=== PATIENT | male | born 1930 | race Caucasian/White ===

== ENCOUNTER 2020-04-16 07:17 | Emergency (ER) | payer MEDICARE, OTHER ==
[2020-04-16 08:12] LABS: BASOPHIL 0.2 % (0-2); EOSINOPHIL 0.5 % (0-7); HCT 39.1 % (42.0-52.0); HGB 12.7 g/dl (13.2-18.0); LYMPHOCYTE 42.6 % (15-48); MCHC 32.5 g/dL (32.0-36.0); MCV 98.5 fL (78.0-100.0); MONOCYTE 2.4 % (0-12); MPV 10.1 fL (6.0-9.5); NRBC 0; PLT 152 K/uL (150-400); RBC 3.97 M/uL (4.70-6.00); RDW 12.9 % (11.5-14.0); WBC 11.7 K/uL (4.0-10.5)
[2020-04-16 08:28] LABS: BILIRUBIN NEGATIVE (NEGATIVE); BLOOD NEGATIVE Ery/uL (NEGATIVE); CLARITY CLEAR (CLEAR); COLOR YELLOW (YELLOW); GLUCOSE (U) NORMAL (NORMAL); LEUKOCYTES NEGATIVE Leu/uL (NEGATIVE); NITRITE NEGATIVE (NEGATIVE); PROTEIN 1+ mg/dL (NEGATIVE); UROBILINOGEN 0.2 mg/dL (0.2-1.0)
[2020-04-16 08:35] LABS: ALBUMIN 3.4 g/dL (3.4-5.0); BILIRUBIN - TOTAL 0.6 mg/dL (0.2-1.0); BUN/CREAT RATIO (CALC) 19.4 RATIO; CREATININE 1.6 mg/dL (0.67-1.17); GLOBULIN (CALCULATION) 3.1 g/dL; MAGNESIUM 1.9 mg/dL (1.8-2.4); POTASSIUM 3.8 mmol/L (3.5-5.1); TOTAL PROTEIN 6.5 g/dL (6.4-8.2)
[2020-04-16 08:39] LABS: BACTERIA TRACE; SQUAMOUS EPITHELIAL CELLS RARE
[2020-04-16 08:40] LABS: LACTIC ACID 1.1 mmol/L (0.4-1.9)
== END 2020-04-16 14:57 | disposition home or self-care (01) ==
LOC: FER 07:17
PROVIDERS: Emergency Medicine
DX: R26.9 Unspecified abnormalities of gait and mobility (principal); I12.9 Hypertensive chronic kidney disease with stage 1 through stage 4 chronic kidney disease, or unspecified chronic kidney disease; N18.30 Chronic kidney disease, stage 3 unspecified; R42 Dizziness and giddiness; I48.91 Unspecified atrial fibrillation; C91.10 Chronic lymphocytic leukemia of B-cell type not having achieved remission; Z79.01 Long term (current) use of anticoagulants; Z20.822 Contact with and (suspected) exposure to COVID-19
CPT/HCPCS: 36415; 70450; 70551; 71045; 80053; 81001; 83605; 83735; 84145; 84443; 84484; 85025; 87040; 93005; J3360; U0002

== ENCOUNTER 2021-04-17 02:43 | Emergency (ER) | payer MEDICARE, OTHER ==
[2021-04-17 03:49] LABS: BASOPHIL 0.2 % (0-2); EOSINOPHIL 1.5 % (0-7); HCT 39.3 % (42.0-52.0); HGB 13.3 g/dl (13.2-18.0); LYMPHOCYTE 43.7 % (15-48); MCH 32.7 pg (25.0-31.0); MCHC 33.8 g/dL (32.0-36.0); MCV 96.6 fL (78.0-100.0); MONOCYTE 5.5 % (0-12); NEUTROPHIL 48.7 % (41-80); NRBC 0; PLT 172 K/uL (150-400); RBC 4.07 M/uL (4.70-6.00); RDW 12.8 % (11.5-14.0); WBC 10.2 K/uL (4.0-10.5)
[2021-04-17 04:11] LABS: ALBUMIN 3.4 g/dL (3.4-5.0); BILIRUBIN - TOTAL 0.6 mg/dL (0.2-1.0); BUN/CREAT RATIO (CALC) 18.9 RATIO; CREATININE 1.75 mg/dL (0.67-1.17); GLOBULIN (CALCULATION) 3.1 g/dL; POTASSIUM 3.8 mmol/L (3.5-5.1); TOTAL PROTEIN 6.5 g/dL (6.4-8.2)
== END 2021-04-17 09:45 | disposition home or self-care (01) ==
LOC: FER 02:43
PROVIDERS: Emergency Medicine
DX: I48.91 Unspecified atrial fibrillation (principal); I10 Essential (primary) hypertension; Z86.73 Personal history of transient ischemic attack (TIA), and cerebral infarction without residual deficits; Z79.01 Long term (current) use of anticoagulants; Z79.899 Other long term (current) drug therapy
CPT/HCPCS: 36415; 71045; 80053; 83735; 83880; 84443; 84484; 85025; 93005

== ENCOUNTER 2022-01-03 22:03 | Emergency (ER) | payer MEDICARE, OTHER ==
[2022-01-03 23:03] LABS: BASOPHIL 0.3 % (0-2); EOSINOPHIL 1.7 % (0-7); HCT 40.8 % (42.0-52.0); HGB 13.5 g/dl (13.2-18.0); MCH 32.2 pg (25.0-31.0); MCHC 33.1 g/dL (32.0-36.0); MCV 97.4 fL (78.0-100.0); MPV 10.1 fL (6.0-9.5); NEUTROPHIL 48.3 % (41-80); NRBC 0; PLT 176 K/uL (150-400); RBC 4.19 M/uL (4.70-6.00); RDW 12.9 % (11.5-14.0); WBC 11.9 K/uL (4.0-10.5)
[2022-01-03 23:05] LABS: LYMPHOCYTE 43.1 % (15-48)
[2022-01-03 23:08] LABS: INR 1.39 (0.9-1.2); PROTHROMBIN TIME 16.6 SECONDS (11.9-13.9); PTT 33.4 SECONDS (24.9-34.6)
[2022-01-03 23:14] LABS: ALBUMIN 3.5 g/dL (3.4-5.0); BILIRUBIN - TOTAL 0.5 mg/dL (0.2-1.0); BUN/CREAT RATIO (CALC) 18.8 RATIO; CREATININE 2.08 mg/dL (0.67-1.17); GLOBULIN (CALCULATION) 3.4 g/dL; POTASSIUM 4.1 mmol/L (3.5-5.1); TOTAL PROTEIN 6.9 g/dL (6.4-8.2)
== END 2022-01-04 02:59 | disposition home or self-care (01) ==
LOC: FER 22:03
PROVIDERS: Emergency Medicine
DX: I48.20 Chronic atrial fibrillation, unspecified (principal); I10 Essential (primary) hypertension; Z79.01 Long term (current) use of anticoagulants; Z79.899 Other long term (current) drug therapy
CPT/HCPCS: 36415; 71045; 80053; 83880; 84484; 85025; 85610; 85730; 93005